=== PATIENT | female | born 2000 | race Caucasian/White ===

== ENCOUNTER 2024-08-06 12:46 | Emergency (ER) | payer OTHER, SELFPAY ==
[2024-08-06 13:03] VITALS: BP 123/84; PULSE 85; RESP 16; TEMP 36.9; O2SAT 99
[2024-08-06 13:09] VITALS: BP 123/84; PULSE 85; RESP 16; TEMP 36.9; O2SAT 99
--- NOTE | 2024-08-06 13:24 | ED_ITS ---
HPI - Skin/Abscess/Foreign Bdy General Chief complaint: Skin/Abscess/Foreign Body Stated complaint: Swollen Thumb Right Hand Time Seen by Provider: 08/06/24 13:16 Source: patient, RN notes reviewed and old records reviewed Mode of arrival: ambulatory Limitations: no limitations History of Present Illness HPI narrative: 23 year old female who presents to [facility] with complaints of swelling pain and some drainage from around right thumb nail bed for the past 5 days. Patient reports that she did stick a needle into the tissue along lateral nail bed and small amount of purulent drainage stated to of drained from area.. On examination area lateral nail bed region is draining moderate amounts of purulent drainage with redness, tenderness and swelling of distal thumb noted. Patient reports that she has not had any noted fevers, chills or sweats. Patient reports that she is a nail biter. MD complaint: other (swelling right thumb nail bed) Onset (ago): day(s) (5) Location: R hand (thumb) Severity scale (1-10): 3 Quality: aching and sharp Treatments prior to arrival: bandages and attempted to drain pus at home Related Data Home Medications Medication Instructions Recorded Confirmed escitalopram oxalate 20 mg tablet 20 mg PO DAILY 08/06/24 08/06/24 estradiol 1 mg-progesterone 100 mg 1 cap PO DAILY 08/06/24 08/06/24 capsule estradiol valerate 20 mg/mL 6 mg IM Q7D 08/06/24 08/06/24 intramuscular syringe Allergies Allergy/AdvReac Type Severity Reaction Status Date / Time No Known Allergies Allergy Verified 08/06/24 12:57 Review of Systems Review of Systems: CONSTITUTIONAL: Denies fever, chills, or sweats. CARDIOVASCULAR: Denies chest pain, palpitations, or edema. RESPIRATORY: Denies cough or dyspnea. GASTROINTESTINAL: Denies abdominal pain, nausea, vomiting SKIN: Reports redness and swelling. to distal right thumb and nail bed and states she took a needle a punched a hole in skin around the right thumb nail with some purulent drainage, is painful on palpation. MUSCULOSKELETAL: Denies myalgia. NEUROLOGIC: Denies headache, numbness All systems reviewed & are unremarkable except as noted in HPI and below PMFSH Social History Social History (Updated 08/06/24 @ 14:08 by Aisha Goss NP) Smoking status: Never smoker Alcohol intake: current Alcohol use details: social Substance use type: does not use Comments At time of signature, agree with nursing past medical, surgical, social and family history. There is no relevant family history pertinent to the presenting complaint Exam Narrative: GENERAL: Well-appearing, well-nourished, and in no acute distress. HEAD: Normocephalic, atraumatic. EYES: PERRLA and EOMI. ENT: Nares clear, no rhinorrhea or epistaxis. Mucous membranes moist. NECK: Supple.no lymphadenopathy CHEST: Clear to auscultation. No respiratory distress. no cough noted SAO2 99% on room air HEART: Regular rate and rhythm. No murmur heard. Normal peripheral pulses. ABDOMEN: Soft, nontender, nondistended, normal active bowel sounds. EXTREMITIES: Normal range of motion. No edema. SKIN: Warm, dry. Erythema, fluctuation of skin at nail bed right thumb with some swelling of distal thumb., tenderness, warmth to distal right thumb and nail bed with purulent drainage from around lateral edge of nail bed. NEURO: No focal deficits. Alert and oriented x3. Course Course Emergency Course: Patient is aware of diagnosis, understands and agrees to treatment plan. Anticipatory guidance given. Patient agrees to follow-up as directed and is aware of reasons to seek care at the emergency department. Portions of this record may have been created with voice recognition software Level of Care: Express Care Visit Vital Signs Vital signs: Vital Signs Temperature 36.9 C 08/06/24 13:03 Pulse Rate 85 08/06/24 13:03 Respiratory Rate 16 08/06/24 13:03 Blood Pressure 123/84 08/06/24 13:03 Pulse Oximetry 99 08/06/24 13:03 Temperature 36.9 C 08/06/24 13:09 Pulse Rate 85 08/06/24 13:09 Respiratory Rate 16 08/06/24 13:09 Blood Pressure 123/84 08/06/24 13:09 Pulse Oximetry 99 08/06/24 13:09 Reviewed MDM - Skin/Abscess/Foreign Bdy MDM Narrative Medical decision making narrative: Does not appear at this time to be erythema multiforme, bullous, SJS, TEN; no evidence at this time to suggest RMSF, endocarditis or Lyme disease; patient looks well, nontoxic and is tolerating oral intake; no neurologic signs or symptoms; no headache, photophobia or neck pain; afebrile; appropriate for initial outpatient treatment; discussed the importance of follow-up, patient agrees. Patient does not have history of penetrating trauma, laceration, blunt trauma, recent surgery, immunosuppression, malignancy, obesity, alcoholism, corticosteroid use. Question cellulitis, necrotizing soft tissue infection, abscess. Differential Diagnosis Differential diagnosis: Likely abscess of skin or subcutaneous tissue, cellulitis, contact dermatitis and other (paronychia right thumb) Medical Records Attestation: I reviewed the patient's medical records. Critical Care Time Critical Care Time Critical Care Time: No Discharge Plan Discharge Clinical Impression: Acute paronychia of right thumb Patient Disposition: Home, Self-Care Condition: Stable Instructions: Antibiotic Form, Paronychia (ED) Additional Instructions: 2 times daily soak right thumb in warm soapy water using liquid Dial soap rinse apply mupirocin ointment cover with a Band-Aid watch for increasing infection--redness, swelling, drainage Tylenol or ibuprofen for any fever pain follow up with PCP in 7-10 days for a wound check recheck if develop fever, chills, increasing symptom Go to the ER if your symptoms become worse of if ANY new symptoms develop antibiotic as prescribed complete all doses If your symptoms persist, change or worsen significantly before you can contact your personal physician then please, without delay, go to the emergency department for further evaluation. Follow-up with PCP in 7-10 days or sooner if needed Follow up with PCP soon in regards to your blood pressure which is elevated above threshold for referral. Blood pressure above 120/80 may indicate pre- hypertension. minimal elevation 123/84 Prescriptions: New clindamycin HCl 300 mg capsule 300 mg PO Q8H Qty: 30 0RF Rx Instructions: take all doses mupirocin 2 % ointment 1 applic topical BID Qty: 22 0RF No Action estradiol valerate 20 mg/mL Syringe 6 mg IM Q7D escitalopram oxalate 20 mg Tablet 20 mg PO DAILY estradiol-progesterone 1-100 mg Capsule 1 cap PO DAILY Follow-up/Referrals: PHYSICIAN,HYDRAULIC LIFT DRIVER [Primary Care Provider] - Time of Disposition: 13:37 Quality [place] Coma Scale Eyes: Open Verbal: Oriented and Alert Motor: Follows Commands [place] Coma Total Score: 15
== END 2024-08-06 13:43 | disposition home or self-care (01) ==
PROVIDERS: Emergency Provider Registered Nurse
DX: L03.011 Cellulitis of right finger (principal)
CPT/HCPCS: 99213; G0463